=== PATIENT | female | born 1940 | race Caucasian/White ===

== ENCOUNTER 2021-10-16 18:50 | Observation (INO) | payer MEDICARE ==
[~2021-10-16] VITALS: Ht 162.6 cm; Wt 59.2 kg
[2021-10-16] VITALS (13 sets, daily range): BP systolic 125–207; BP diastolic 52–102
[~2021-10-16 18:50] MED LIST: AMLODIPINE5 MG PO; AVELOX400 MG OR; CALCIUM500 M2 PO; CENTRUM PO; ENALAPRIL10 MG PO; FLEXERIL PO; GINGER EXTRA250 MG PO; HYDROCHLOROT25 MG PO; HYDROCODONE/ACE1 TAB PO; KLOR-CON 1010 ME1 PO; METO50TA52 OR; METOPROL TAR100 MG PO; METOPROLOL TART50 MG PO; METOPROLOL100 M1 PO; MICARDIS40 MG OR; OMEPRAZOLE20 M2 PO; PERCOCET1 TA2 PO; PROBIOTIC1 TAB PO; RITUXIN; VITAMIN D PO; XANAX0.25 MG PO; ZOFRAN4 MG/TAB PO; [UNRECOGNIZED DRUG - OTHER] OR
--- NOTE | 2021-10-16 19:05 | NUR ---
PT AMBULATORY WITH CANE TO ROOM 9 FOR TRIAGE. DAUGHTER WITH PT...VISITING FROM [place]. 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
[2021-10-16] MEDS ORDERED: HYDROCHLOROT12.5 MG PO (19:32)
[2021-10-16] MEDS ORDERED: LOSARTAN POTASS50 MG PO (19:32)
[2021-10-16] MEDS ORDERED: GABAPENTIN100 MG PO (19:33)
[2021-10-16] MEDS ORDERED: VITAMIN D5000 UNIT PO (19:34)
[2021-10-16] MEDS ORDERED: MAGNESIUM 250 M1 TAB PO (19:35)
[2021-10-16] MEDS ORDERED: SEROQUEL50 MG PO (19:37)
[2021-10-16 19:46] LABS: IMMATURE GRANULOCYTES 0.4 % (0.0-5.0); MEAN CELL VOLUME 99.2 fL CALC (80.0-100.0); MEAN CORPUSCULAR HGB 35.3 pG CALC (26.0-32.0); MEAN CORPUSCULAR HGB CONC 35.6 g/dL CAL (32.0-36.0); NEUT# 2.62 thou/uL (2.00-7.15); RED BLOOD COUNT 3.63 mill/uL (4.20-5.60); RED CELL DISTRI WIDTH 12.1 % (11.5-15.5)
[2021-10-16 19:49] LABS: HEMOGLOBIN 12.8 g/dl (12.0-16.0)
[2021-10-16 20:01] LABS: ALKALINE PHOSPHATASE 68 u/l (38-126); BUN 8 mg/dL (8-23); BUN/CREATININE RATIO 15 (12-20 (CALC)); CARBON DIOXIDE 25 mmol/l (22-30); CREATININE 0.5 mg/dL (0.5-1.0); GFR > 60 ML/MIN (>=60 (CALC)); GFR FOR AFR.AMER. > 60 ML/MIN (>=60 (CALC)); SGOT/AST 42 u/l (9-36); TOTAL PROTEIN 6.1 g/dL (6.3-8.2)
[2021-10-16 20:02] LABS: ANION GAP 9 (6-22 (CALC)); BILIRUBIN, TOTAL 0.5 mg/dL (0.0-1.4); CHLORIDE 92 mmol/l (95-108); POTASSIUM 3.3 mmol/l (3.5-5.1); SODIUM 123 mmol/l (137-146)
--- NOTE | 2021-10-16 20:07 | NUR ---
MEDICATED WITH CLONIDINE, HOLD ON IV APRESOLINE AT THIS TIME PER MD RELATED TO SLIGHT IMPROVEMENT IN B/P PRIOR TO ANY MED ADMINISTRATION.
[2021-10-16 20:13] LABS: MYOGLOBIN 46 ng/mL (0 - 62)
[2021-10-16 20:43] LABS: URINE BILIRUBIN - DIPSTICK NEGATIVE (NEGATIVE); URINE BLOOD DIPSTICK MODERATE (NEGATIVE); URINE COLOR YELLOW; URINE GLUCOSE - DIPSTICK NEGATIVE (NEGATIVE); URINE KETONE NEGATIVE (NEGATIVE); URINE LEUK ESTERASE NEGATIVE (NEGATIVE); URINE PH 7.5 (4.5-8.0); URINE PROTEIN - DIPSTICK NEGATIVE (NEG-TRACE); URINE SPECIFIC GRAVITY <=1.005; URINE UROBILINOGEN - DIPSTICK 0.2 E.U./dL (0.2)
[2021-10-16 20:44] LABS: URINE NITRITE - DIPSTICK NEGATIVE (Negative)
[2021-10-16 20:54] LABS: URINE RBC 0-2 RBC/hpf (0-5)
--- NOTE | 2021-10-16 21:15 | NUR ---
PT AMBULATED OT BATHROOM WITH SBA AND TOLERATED WELL, URINE SPECIMEN OBTAINED, AND BACK TO ROOM WITH SAME ASSIST.
--- NOTE | 2021-10-16 22:11 | NUR ---
PT AMBULATES TO BATHROOM WITH SBA AND TOLERATES WELL. B/P IMPROVING, ASKING ABOUT SEROQUEL (HOME MED) TO TAKE BEFORE BED TONIGHT, VERIFIED AND MD CRUZED FOR ADMISSION PT AWARE. PER DAUGHTER PT HAS ANXIETY AT HOME
--- NOTE | 2021-10-16 23:07 | NUR ---
PT AWARE OF PLANNED ADMISSION, B/P IMPROVED 131/61, NO COMPLAINTS OF PAIN, NO S/S OF DISTRESS OR DISCOMFORT.
--- NOTE | 2021-10-16 23:23 | NUR ---
REPORT CALLED TO MARY BETH, ROOM 279 ASSINGED NO TELE ORDERED
--- NOTE | 2021-10-16 23:23 | NUR ---
GOT REPORT FROM ER NURSE. PT WILL BE ON MED SURG FLOOR SOON.
--- NOTE | 2021-10-16 23:33 | NUR ---
PT TRANSPORTED TO MED SURG VIA WHEELCHAIR, ALL BELONGINGS SENT WITH PATIENT.
--- NOTE | 2021-10-16 23:35 | NUR ---
PT ARRIVED TO MED SURG FLOOR VIA WHEELCHAIR ACCOMPANIED BY ER STAFF. PT ORIENTED TO ROOM AND THE USE OF CALL LIGHT. PT A&O X3; EVEN AND UNLABORED RESPIRATIONS; CLEAR LUNG SOUNDS UPON AUSCULTATION. ACTIVE BOWEL SOUNDS X4 QUADRANTS. SKIN IS INTACT. IV SITE IS HEALTHY AND PATENT. SAFETY PRECAUTIONS IN PLACE. CALL LIGHT WITHIN REACH.
[2021-10-17 04:10] VITALS: BP 120/52
--- NOTE | 2021-10-17 04:15 | NUR ---
PT SLEEPING. NO DISTRESS OR PAIN NOTED. BP 120/52. SAFETY PRECAUTIONS IN PLACE. CALL LIGHT WITHIN REACH.
--- NOTE | 2021-10-17 05:13 | NUR ---
PT SLEEPING IN BED. NO DISTRESS OR PAIN NOTED. SAFETY PRECAUTIONS IN PLACE. CALL LIGHT WITHIN REACH.
[2021-10-17 05:18] LABS: HEMATOCRIT 36.3 % (37.0-47.0); HEMOGLOBIN 12.8 g/dl (12.0-16.0); MEAN CELL VOLUME 100.6 fL CALC (80.0-100.0); MEAN CORPUSCULAR HGB 35.5 pG CALC (26.0-32.0); MEAN CORPUSCULAR HGB CONC 35.3 g/dL CAL (32.0-36.0); RED BLOOD COUNT 3.61 mill/uL (4.20-5.60); RED CELL DISTRI WIDTH 12.3 % (11.5-15.5)
[2021-10-17 05:32] LABS: ANION GAP 10 (6-22 (CALC)); BUN 8 mg/dL (8-23); BUN/CREATININE RATIO 15 (12-20 (CALC)); CARBON DIOXIDE 22 mmol/l (22-30); CHLORIDE 100 mmol/l (95-108); CREATININE 0.6 mg/dL (0.5-1.0); GFR > 60 ML/MIN (>=60 (CALC)); GFR FOR AFR.AMER. > 60 ML/MIN (>=60 (CALC)); MAGNESIUM 2.1 mg/dL (1.6-2.3); POTASSIUM 3.8 mmol/l (3.5-5.1); SODIUM 129 mmol/l (137-146)
[2021-10-17 07:30] VITALS: BP 156/63
--- NOTE | 2021-10-17 07:36 | NUR ---
PT AWAKE UPON ENTERING ROOM. COMPLAINS OF IV IV 20G LAC FLUSHED WITH NO RESISTANCE AND ABLE TO GET BLOOD RETURN. GAVE OPTIONS OF NEW IV SITE. PT REFUSED. ASSESSMENT AND VITALS ALLOWED. STATES NO OTHER PAINS. FALL/SAFTEY PRECAUTION IN PLACE. CALL LIGHT WITHIN REACH
[2021-10-17 11:02] VITALS: BP 156/63
[2021-10-17] MEDS ORDERED: HYDRALAZINE HYD25 MG PO (11:19)
[2021-10-17] MEDS ORDERED: TOPROL XL50 MG PO (11:19)
[2021-10-17] MEDS ORDERED: LOSARTAN POTASS50 MG PO (11:19)
--- NOTE | 2021-10-17 12:15 | NUR ---
PT EATING LUNCH IN ROOM. STATES NO PAIN. PT STATES READY TO GO HOME. IV PATENT. NO DISTRESS NOTED. FALL/SAFTEY PRECAUTIONS IN PLACE. CALL LIGHT IS WITHIN REACH.
--- NOTE | 2021-10-17 13:08 | NUR ---
Discharge instructions given. Patient verbalizes understanding of same. Discharged in stable condition via Wheelchair to with [facility] staff. All belongings sent with pt. IV REMOVED. CATHETER FULLY INTACT.
== END 2021-10-17 13:07 | disposition home or self-care (01) ==
LOC: ED 18:50 → ED-I 21:06 → ED 21:19 → MS2 21:20
PROVIDERS: Family Medicine; ADMIT Hospitalist; ATTEND Hospitalist
DX: I16.0 Hypertensive urgency (principal); I10 Essential (primary) hypertension; E87.1 Hypo-osmolality and hyponatremia; G62.9 Polyneuropathy, unspecified; G47.00 Insomnia, unspecified; Z20.822 Contact with and (suspected) exposure to COVID-19
CPT/HCPCS: G0378